=== PATIENT | male | born 1940 ===

== ENCOUNTER 2018-06-14 06:17 | Day surgery (SDC) | payer OTHER ==
[~2018-06-14 06:17] MED LIST: ASA81 MG PO; ATENOLOL25 MG PO; LIPITOR20 MG PO; METFORMIN HCL500 MG PO; SYNTHROID50 MCG PO
== END 2018-06-14 14:10 | disposition home or self-care (01) ==
LOC: CIR.AMB 06:17
DX: G56.02 Carpal tunnel syndrome, left upper limb (principal)